=== PATIENT | male | born 1990 | race Two or more races ===

== ENCOUNTER 2021-05-29 20:16 | Emergency (ER) | payer OTHER ==
[~2021-05-29] VITALS: Ht 170.2 cm; Wt 77.1 kg
[2021-05-29] MEDS ORDERED: OLANZAPINE 10 MG VIAL IM ONE ×2 (20:27→20:30)
[2021-05-29] MEDS ORDERED: diphenhydrAMINE HCL 50 MG/ML VIAL ONE (20:27)
[2021-05-29] MEDS ORDERED: LORAZEPAM INJ 2 MG/ML VIAL ONE (20:28)
[2021-05-29] MEDS ORDERED: LORAZEPAM INJ 2 MG/ML VIAL IM ONE (20:30)
[2021-05-29] MEDS ORDERED: diphenhydrAMINE HCL 50 MG/ML VIAL IM ONE (20:30)
--- NOTE | 2021-05-29 20:32 | NUR ---
BIB/[facility] FOR [facility] OUTSIDE OF A STORE. POSS DRUG USE. DENIES S/I. PATIENT AGGRESSIVE AND VIOLENT, PLACED IN RESTRAINTS PER MD. BELONGINGS TAKEN WITH SITTER AT BEDSIDE.
--- NOTE | 2021-05-29 21:30 | NUR ---
[employer]IST @ BEDSIDE
[2021-05-29 21:31] LABS: BASOPHILS # (AUTO) 0.1 K/uL (0.0-0.2); BASOPHILS % (AUTO) 0.6 % (0.0-2.0); EOSINOPHILS % (AUTO) 0.2 % (0.0-6.0); HEMATOCRIT 41 % (39-51); HEMOGLOBIN 13.6 g/dL (13.5-17.5); LYMPHOCYTES # (AUTO) 1.3 K/uL (0.8-4.8); LYMPHOCYTES % (AUTO) 13.5 % (20.0-44.0); MEAN CORPUSCULAR HGB CONC 33 g/dl (31.0-36.0); MEAN CORPUSCULAR VOLUME 86 fL (80-96); MONOCYTES # (AUTO) 0.5 K/uL (0.1-1.30); MONOCYTES % (AUTO) 5.4 % (2.0-12.0); NEUTROPHILS # (AUTO) 7.7 K/uL (1.8-8.9); NEUTROPHILS % (AUTO) 80.3 % (43.0-81.0); PLATELET COUNT (AUTO) 195 K/uL (150-450); RED BLOOD CELL COUNT(AUTO) 4.77 MIL/uL (4.5-6.0); WHITE BLOOD COUNT (AUTO) 9.6 K/uL (4.3-11.0)
--- NOTE | 2021-05-29 21:31 | NUR ---
COVID SWAB DONE AND SENT TO LAB
[2021-05-29 21:42] LABS: CALCIUM, SERUM 9.2 mg/dL (8.5-10.1); CARBON DIOXIDE 28 mmol/L (21-32); CHLORIDE 105 mmol/L (98-107); CREATININE 1.4 mg/dL (0.6-1.3); GLUCOSE 101 mg/dL (74-106); POTASSIUM 3.4 mmol/L (3.5-5.1); SODIUM SERUM 139 mmol/L (136-145); UREA NITROGEN, BLOOD 18 mg/dL (7-18)
[2021-05-29 21:47] LABS: ALANINE AMINOTRANSFERASE 21 U/L (12-78); ALBUMIN 4.1 g/dL (3.4-5.0); ALCOHOL, BLOOD < 3 mg/dL (0-0); ALKALINE PHOSPHATASE 64 U/L (46-116); ASPARTATE AMINOTRANSFERASE 17 U/L (15-37); BILIRUBIN,DIRECT 0.1 mg/dL (0.0-0.2); BILIRUBIN,TOTAL 0.7 mg/dL (0.2-1.0); TOTAL PROTEIN, SERUM 6.8 g/dL (6.4-8.2)
[2021-05-29 21:49] LABS: ACETAMINOPHEN < 1 ug/ml (10-30)
[2021-05-30 00:11] LABS: BILIRUBIN,URINE SMALL (NEGATIVE); COLOR,URINE YELLOW (YELLOW); LEUKOCYTE ESTERASE ,URINE NEGATIVE (NEGATIVE); NITRITE, URINE NEGATIVE (NEGATIVE); PROTEIN,URINE 30 mg/dl (NEGATIVE); UGLUCOSE NEGATIVE (NEGATIVE); UROBILINOGEN,URINE 0.2 EU/dL (0.2)
[2021-05-30 01:24] LABS: SQUAMOUS EPITHELIAL CELL,UR 0-2 /HPF (None Seen)
[2021-05-30 01:25] LABS: RBC,URINE 0-2 /HPF (0-2)
[2021-05-30 01:27] LABS: BACTERIA,URINE Few /HPF (None Seen); WBC,URINE 0-2 /HPF (0-3)
[2021-05-30 01:28] LABS: CALCIUM OXALATE CRYSTALS,UR Few /HPF (None Seen); URIC ACID CRYSTALS,URINE Few /HPF (None Seen); URINE AMORPHOUS URATE Few /HPF (None Seen)
[2021-05-30] MEDS ORDERED: diphenhydrAMINE HCL 50 MG/ML VIAL ONE (01:39)
[2021-05-30] MEDS ORDERED: HALOPERIDOL LACTATE INJ 5 MG/ML VIAL ONE (01:39)
[2021-05-30] MEDS ORDERED: LORAZEPAM INJ 2 MG/ML VIAL ONE (01:40)
[2021-05-30] MEDS ORDERED: HALOPERIDOL LACTATE INJ 5 MG/ML VIAL IM ONE (02:00)
[2021-05-30] MEDS ORDERED: LORAZEPAM INJ 2 MG/ML VIAL IM ONE (02:00)
[2021-05-30] MEDS ORDERED: IV NS 0.9% 1,000 ML BAG IV ONE (02:00)
[2021-05-30] MEDS ORDERED: diphenhydrAMINE HCL 50 MG/ML VIAL IM ONE (02:00)
--- NOTE | 2021-05-30 03:09 | NUR ---
ON PHONE WITH BROTHER.
--- NOTE | 2021-05-30 08:00 | NUR ---
PATIENT ASLEEP, EASILY AROUSABLE, BREATHING EVEN AND NON LABORED
--- NOTE | 2021-05-30 10:32 | NUR ---
IV removed. Catheter intact and site benign. Pressure and 4x4 applied to site. No bleeding noted.Patient discharged to home in stable condition. Written and verbal after care instructions given. Patient verbalizes understanding of instruction.
[2021-05-30 10:34] VITALS: BP 136/91
== END 2021-05-30 10:34 | disposition home or self-care (01) ==
LOC: ER 20:20
DX: F23 Brief psychotic disorder (principal); Z78.1 Physical restraint status; Z20.822 Contact with and (suspected) exposure to COVID-19; Z59.00 Homelessness unspecified
CPT/HCPCS: 36415; 80048; 80076; 80143; 80307; 80320; 81001; 85025; 87426; 96360; 96372 ×3; 99291; C9803; J1200 ×2; J1630; J2060 ×2; J3490; G0480; J7030